=== PATIENT | female | born 1995 | race Caucasian/White ===

== ENCOUNTER → 2017-07-29 | Outpatient (CLI) | payer BC ==
[2017-07-29 18:03] LABS: CH 31.5; CHCM 36.1; HCT 39.3 % (34.0-46.0); HDW 2.61; HGB 13.5 gm/dL (11.4-16.0); MCHC 34.2 g/dL (31.0-37.0); MCV 87.7 fL (80.0-100.0); Mean Platelet Volume 7.1; RBC 4.48 m/uL (3.80-5.40); RDW 12.9 % (11.5-15.5); WBC 10.6 k/uL (3.8-10.6)
[2017-07-29 18:15] LABS: Glucose 64 mg/dL (74-99); Non-African American GFR(MDRD) >60 (>60 ml/min/1.73 sqM)
[2017-07-29 18:49] LABS: Hepatitis B Surface Ag Index 0.05
[2017-07-30 01:26] LABS: Treponemal Ab Non-Reactive (Non-Reactive)
[2017-07-31 02:02] LABS: Toxoplasma Antibody (IgG) <3.0 IU/mL (<7.2)
== END | disposition home or self-care (01) ==
LOC: LABWHC1 17:01
PROVIDERS: ATTEND Obstetrics & Gynecology
DX: Z34.81 Encounter for supervision of other normal pregnancy, first trimester (principal); Z3A.00 Weeks of gestation of pregnancy not specified
CPT/HCPCS: 36415; 82565; 82947; 85027; 86762; 86777; 86778; 86780; 86850; 86900; 86901; 87340; 87390

== ENCOUNTER 2018-02-13 01:21 | Outpatient (CLI) | payer BC ==
[2018-02-13 02:54] VITALS: BP 128/75; PULSE 97; RESP 18; TEMP 96.6
--- NOTE | 2018-02-13 07:37 | P.MSEPDOC ---
Presenting Problems - Arrival Data Date of Arrival on Unit: 02/13/18 Time of Arrival on Unit: 01:19 Mode of Transport: Wheelchair - Complaint OB-Reason for Admission/Chief Complaint: Possible Onset of Labor Comment: pt presents with c/o contractions every 10-15mins since 2199. Medical History - Information : 1 Para: 0 Term: 0 : 0 Abortions: Spontaneous or Elective: 0 Number of Living Children: 0 - Gestational Age Gestational Age by CHARLIE (wks/days): 38 Weeks and 6 Days Review of Systems - Review of Systems Constitutional: No problems Breast: No problems ENT: No problems Cardiovascular: No problems Respiratory: No problems Gastrointestinal: No problems Genitourinary: No problems Musculoskeletal: No problems Neurological: No problems Skin: No problems Vital Signs - Temperature Temperature: 96.6 F Temperature Source: Temporal Artery Scan - Pulse Right Pulse Rate: 97 Pulse Assessment Method: Pulse Oximetry - Respirations Respiratory Rate: 18 Oxygen Delivery Method: Room Air O2 Sat by Pulse Oximetry: 98 - Blood Pressure Right Arm Blood Pressure: 128/75 Blood Pressure Mean: 92 Blood Pressure Source: Automatic Cuff Medical Screen Scoring (Pre) - Cervical Exam Dilation: 0 cm = 0 Effacement: Exam Deferred Membranes: Intact - Uterine Contractions Frequency: N/A Duration: N/A Intensity: N/A - Maternal Vital Signs Maternal Temperature: N/A Maternal Blood Pressure: N/A Signs of Preeclampsia: N/A Maternal Respirations: N/A - Pain Assessment Pain Location and Character: Abdomen Pain Scale Used: Numeric (1 - 10) Pain Intensity: 8 Pain Management Goal: 0 Pain Description: *Acute, Sharp Pain Frequency: Intermittent Pain Duration Units: Minutes Pain Behavior: Vocalization Pain Aggravating Factors: Position Non-Pharmacological Interventions: Darkened Room, Environmental Control, Position/Reposition, Relaxation Technique - Maternal Trauma Maternal Trauma: N/A - Assessment Baseline FHR: 135 Heart Rate - NICHD Category: Category I (Normal) = 0 NST: Reactive Position: N/A Station: N/A - Total Score Total Score (Pre): 0 - Level of Risk Level of Risk: Low (0-5) Physician Notification (Pre) - Physician Notified Physician Notified Date: 02/13/18 Physician Notified Time: 02:08 Physician/Practitioner Notifed:: Dr. Al Spoke With: Dr. Al New Order Received: Yes (Recheck pt at 1hour brandon.) - Notification Comment Comment: If pt is still closed and FHT remain reactive, pt is cleared for discharge home with follow up instructions. Medical Screen Scoring (Post) - Cervical Exam Dilation: 0 cm = 0 Effacement: Exam Deferred Membranes: Intact - Uterine Contractions Frequency: N/A Duration: N/A Intensity: N/A - Maternal Vital Signs Maternal Temperature: N/A Maternal Blood Pressure: N/A Signs of Preeclampsia: N/A Maternal Respirations: N/A - Pain Assessment Pain Location and Character: Abdomen Pain Scale Used: Numeric (1 - 10) Pain Intensity: 3 Pain Management Goal: 0 Pain Description: *Acute, Tightness Pain Frequency: Intermittent Pain Duration Units: Minutes Pain Behavior: Vocalization Pain Aggravating Factors: Position Non-Pharmacological Interventions: Relaxation Technique - Maternal Trauma Maternal Trauma: N/A - Assessment Heart Rate: 130 Heart Rate - NICHD Category: Category I (Normal) = 0 NST: Reactive Position: N/A Station: N/A - Total Score Total Score (Post): 0 - Post Treatment Level of Risk Post Treatment Level of Risk: Low (0-5) Physician Notification (Post) - Physician Notified Physician Notified Date: 02/13/18 Physician Notified Time: 02:08 Physician/Practitioner Notified:: Dr. Al Spoke With: Dr. Al Disposition - Disposition OB Disposition: Discharge to home Discharge Date: 02/13/18 Discharge Time: 02:38 I agree with the RN Medical Screening Exam: Yes Risk & Benefit of care provided described in d/c instruction: Yes Diagnosis: FALSE LABOR AT OR AFTER 37 COMPLETED WEEKS OF GESTATION
== END 2018-02-13 02:38 | disposition home or self-care (01) ==
LOC: FBPOP 01:21
PROVIDERS: ATTEND Obstetrics & Gynecology
DX: O47.1 False labor at or after 37 completed weeks of gestation (principal); Z3A.38 38 weeks gestation of pregnancy
CPT/HCPCS: 59025; 99213

== ENCOUNTER 2018-02-17 15:02 | Inpatient (IN) | payer BC ==
[2018-02-17] MEDS ORDERED: ZOLPIDEM 5 MG TAB PO PRN (16:35)
[2018-02-17] MEDS ORDERED: DINOPROSTONE 10 MG INSERT.ER VAGINAL ONE (16:35)
[2018-02-17 16:43] VITALS: BMI 36.3
[2018-02-17] MEDS: BUTORPHANOL 1 MG/ML 1 ML VIAL IV PRN (21:48)
[2018-02-17 22:10] LABS: Basophils % (A) 0 %; Eosinophils # (A) 0.1 k/uL (0-0.7); Eosinophils % (A) 1 %; HCT 34.4 % (34.0-46.0); HGB 11.5 gm/dL (11.4-16.0); Lymphocytes # (A) 1.7 k/uL (1.0-4.8); Lymphocytes % (A) 14 %; MCH 28.8 pg (25.0-35.0); MCHC 33.6 g/dL (31.0-37.0); MCV 85.8 fL (80.0-100.0); Mean Platelet Volume 7.6; Monocytes # (A) 0.5 k/uL (0-1.0); Monocytes % (A) 4 %; Neutrophils # (A) 9.8 k/uL (1.3-7.7); Neutrophils % (A) 81 %; Platelet Count 358 k/uL (150-450); RBC 4.01 m/uL (3.80-5.40); RDW 13.8 % (11.5-15.5); WBC 12.2 k/uL (3.8-10.6)
[2018-02-17] MEDS: LACTATED RINGERS 1,000 ML IV SCH (23:19)
[2018-02-17] MEDS ORDERED: CARBOPROST TROMETHAMINE 250 MCG/ML 1 ML AMP IM PRN (23:20)
[2018-02-17] MEDS ORDERED: METHYLERGONOVINE 0.2 MG/ML 1 ML AMP IM PRN (23:20)
[2018-02-17] MEDS ORDERED: OXYTOCIN 10 UNIT/ML 1 ML VIAL IM PRN (23:20)
[2018-02-17] MEDS ORDERED: TERBUTALINE 1 MG/ML VIAL SQ PRN (23:20)
[2018-02-17] MEDS ORDERED: LIDOCAINE 1% (PF) 10 MG/ML (30 ML SDV) SQ PRN (23:20)
[2018-02-17] MEDS ORDERED: AMPICILLIN 2,000 MG in SODIUM CHLORIDE 0.9% 100 ML IVPB STA (23:20)
[2018-02-17] MEDS ORDERED: OXYTOCIN 20 UNITS/1000 ML NS 1,000 ML IV SCH (23:30)
[2018-02-18] MEDS: BUTORPHANOL 1 MG/ML 1 ML VIAL IV PRN ×3 (00:59→05:01)
[2018-02-18] MEDS: AMPICILLIN 1,000 MG in SODIUM CHLORIDE 0.9% 50 ML IVPB SCH ×3 (04:07→12:26)
[2018-02-18] MEDS: LACTATED RINGERS 1,000 ML IV SCH ×2 (04:54→08:11)
[2018-02-18] MEDS ORDERED: BUPIVACAINE (PF) 0.25% 30 ML VIAL ONE (07:32)
[2018-02-18] MEDS ORDERED: SODIUM CHLORIDE 0.9% 100 ML BAG ONE (07:32)
[2018-02-18] MEDS ORDERED: fentaNYL (PF) 50 MCG/ML 5 ML AMP ONE (07:32)
[2018-02-18] MEDS ORDERED: ePHEDrine SULFATE/0.9% NACL/PF 50 MG/5 ML SYRINGE IV ONE (07:32)
[2018-02-18] MEDS ORDERED: BUPIVACAINE (PF) 0.25% 25 ML, fentaNYL (PF) 200 MCG in SODIUM CHLORIDE 0.9% 71 ML EPIDURAL ONE (07:52)
--- NOTE | 2018-02-18 13:12 | P.HPOB ---
History of Present Illness H&P Date: 02/17/18 Chief Complaint: Induction of labor 22 year old presents at 39 weeks 4 days for induction of labor. She has been increasingly uncomfortable, she has some headaches and increased swelling. Cervix is closed/50/-2. She is not bridget. heart tones 130-135 with moderate variability and reactive. Review of Systems All systems: negative Constitutional: Denies chills, Denies fever Eyes: denies blurred vision, denies pain Ears, nose, mouth and throat: Denies headache, Denies sore throat Cardiovascular: Denies chest pain, Denies shortness of breath Respiratory: Denies cough Gastrointestinal: Denies abdominal pain, Denies diarrhea, Denies nausea, Denies vomiting Genitourinary: Denies dysuria, Denies hematuria Musculoskeletal: Denies myalgias Integumentary: Denies pruritus, Denies rash Neurological: Denies numbness, Denies weakness Psychiatric: Denies anxiety, Denies depression Endocrine: Denies fatigue, Denies weight change Past Medical History Past Medical History: No Reported History Additional Past Medical History / Comment(s): OB history: first was a spontaneous . This is her second and she has had care with me since 10 weeks. O+, abs neg,Rub Imm, RPR NR, HEp Bneg, HIV NR. History of Any Multi-Drug Resistant Organisms: None Reported Past Surgical History: Orthopedic Surgery Additional Past Surgical History / Comment(s): Knee surgery-2012, wisdom teeth- 2009 Past Anesthesia/Blood Transfusion Reactions: No Reported Reaction Past Psychological History: No Psychological Hx Reported Smoking Status: Former smoker Past Drug Use History: None Reported - Past Family History Mother Family Medical History: Thyroid Disorder Medications and Allergies Home Medications Medication Instructions Recorded Confirmed Type No Known Home Medications [No 02/13/18 02/17/18 History Known Home Medications] Allergies Allergy/AdvReac Type Severity Reaction Status Date / Time No Known Allergies Allergy Verified 02/17/18 16:34 Exam Osteopathic Statement: *. No significant issues noted on an osteopathic structural exam other than those noted in the History and Physical/Consult. - Vital Signs Vital signs: Vital Signs Temp Pulse Resp BP Pulse Ox 02/17/18 16:36 98.1 F 113 H 16 139/91 98 Intake and Output 02/17/18 02/18/18 02/18/18 22:59 06:59 14:59 Other: # Voids 1 3 Weight 90.265 kg HEart: RRR Lungs: CTAB ABdomen: soft, nontender Extremeties: neg kj's Results Result Diagrams: 02/17/18 22:00 Abnormal Lab Results - Last 24 Hours (Table) 02/17/18 Range/Units 22:00 WBC 12.2 H (3.8-10.6) k/uL Neutrophils # 9.8 H (1.3-7.7) k/uL Assessment and Plan (1) Normal labor Current Visit: Yes Status: Acute Code(s): O80 - ENCOUNTER FOR FULL-TERM UNCOMPLICATED DELIVERY; Z37.9 - OUTCOME OF DELIVERY, UNSPECIFIED SNOMED Code(s ): 59870920 Plan: 1. induction of labor with cervidil and then amniotomy and pitocin 2. anticipate normal vaginal delivery
[2018-02-18] MEDS ORDERED: BENZOCAINE/MENTHOL SPRAY 1 GM/SPRAY AEROSOL TOPICAL PRN (13:56)
[2018-02-18] MEDS ORDERED: ZOLPIDEM 5 MG TAB PO PRN (13:56)
[2018-02-18] MEDS ORDERED: diphenhydrAMINE 50 MG CAP PO PRN (13:56)
[2018-02-18] MEDS ORDERED: SIMETHICONE 80 MG CHEWABLE PO PRN (13:56)
[2018-02-18] MEDS ORDERED: diphenhydrAMINE 25 MG CAP PO PRN (13:56)
[2018-02-18] MEDS ORDERED: HYDROCORTISONE 2.5% RECTAL CREAM 30 GM TUBE RECTAL PRN (13:56)
[2018-02-18] MEDS ORDERED: LANOLIN CREAM 5 GM TUBE TOPICAL PRN (13:56)
[2018-02-18] MEDS ORDERED: diphenhydrAMINE 50 MG/ML 1 ML VIAL IVP PRN ×2 (13:56)
[2018-02-18] MEDS ORDERED: WITCH HAZEL 1 EACH MED..PAD TOPICAL PRN (13:56)
[2018-02-18] MEDS ORDERED: HYDROcodone/APAP 5-325MG 1 EACH TAB PO PRN ×2 (14:02→14:03)
[2018-02-18] MEDS: IBUPROFEN 600 MG TAB PO PRN ×2 (14:10→20:15)
[2018-02-18] MEDS: ACETAMINOPHEN TAB 325 MG TAB PO PRN ×2 (17:22→22:43)
[2018-02-18] MEDS: SENNOSIDES-DOCUSATE SODIUM 1 EACH TAB PO SCH (20:16)
[2018-02-19] MEDS: IBUPROFEN 600 MG TAB PO PRN (04:24)
--- NOTE | 2018-02-19 07:14 | P.PROBDLV ---
Vaginal Delivery Note - . Vaginal Delivery Note: 22-year-old presented at 39 weeks and 4 days for induction of labor. Her cervix was closed, 50% effaced, -2 station. She was bridget irregularly. heart tones 130-135 with moderate variability and reactive. Cervidil was placed but she will went to labor and her water broke at 11:30 PM and Cervidil was removed. She was about 2 cm dilated at that time. Pitocin was started at around 5:15 in the morning when the contractions spaced out. She did get an epidural soon after this. Her cervix was completely dilated at 12:54 PM. She pushed, delivered a viable male over intact perineum under epidural anesthesia at 1339. Head delivered OA, anterior shoulder delivered with gentle downward traction followed by posterior shoulder and rest of body. Nose mouth bulb suctioned, cord clamped and cut, infant placed mother's abdomen. Apgars 9 , 9, weight 7 lbs. 7 oz. Placenta delivered spontaneously, intact with three- vessel cord at 1341. Vagina, cervix, perineum were inspected. Second-degree midline laceration was repaired with 2-0 and 3-0 Vicryl. Estimated blood loss 200 mL. Mother and baby in stable condition.
--- NOTE | 2018-02-19 08:18 | P.DS ---
Providers Date of admission: 02/17/18 16:15 Expected date of discharge: 02/19/18 Attending physician: Sabrina Gallardo Primary care physician: Stated None - Discharge Diagnosis(es) (1) Normal labor Current Visit: Yes Status: Acute Hospital Course: Patient presented for induction of labor. She underwent a normal vaginal delivery. Her course was uncomplicated. She'll be discharged home day #1 in stable condition to follow-up with me in 6 weeks. Plan - Discharge Summary New Discharge Prescriptions: No Action No Known Home Medications [No Known Home Medications] Discharge Medication List No Known Home Medications [No Known Home Medications] 02/13/18 [History] Follow up Appointment(s)/Referral(s): Sabrina Gallardo DO [Doctor of Osteopathic Medicine] - 6 Weeks Discharge Disposition: HOME SELF-CARE
[2018-02-19] MEDS: ACETAMINOPHEN TAB 325 MG TAB PO PRN ×3 (09:32→22:27)
[2018-02-19] MEDS: SENNOSIDES-DOCUSATE SODIUM 1 EACH TAB PO SCH ×2 (09:32→19:44)
[2018-02-20 00:13] VITALS: TEMP 98
[2018-02-20] MEDS: ACETAMINOPHEN TAB 325 MG TAB PO PRN ×2 (01:58→09:05)
[2018-02-20 10:08] VITALS: BP 127/69; PULSE 71; RESP 16
== END 2018-02-20 11:23 | disposition home or self-care (01) | DRG 775 ==
LOC: 4FBP 16:15
PROVIDERS: ADMIT Obstetrics & Gynecology; ATTEND Obstetrics & Gynecology
PROC: 3E0P7VZ Introduction of Hormone into Female Reproductive, Via Natural or Artificial Opening (ICD-10-PCS; 2018-02-17)
PROC: 3E033VJ Introduction of Other Hormone into Peripheral Vein, Percutaneous Approach (ICD-10-PCS; 2018-02-17)
PROC: 10E0XZZ Delivery of Products of Conception, External Approach (ICD-10-PCS; principal; 2018-02-18)
PROC: 0KQM0ZZ Repair Perineum Muscle, Open Approach (ICD-10-PCS; 2018-02-18)
PROC: 00HU33Z Insertion of Infusion Device into Spinal Canal, Percutaneous Approach (ICD-10-PCS; 2018-02-18)
PROC: 3E0R3NZ Introduction of Analgesics, Hypnotics, Sedatives into Spinal Canal, Percutaneous Approach (ICD-10-PCS; 2018-02-18)
DX: O70.1 Second degree perineal laceration during delivery (principal); Z37.0 Single live birth; Z3A.39 39 weeks gestation of pregnancy; Z87.891 Personal history of nicotine dependence
CPT/HCPCS: 85025; 88307

== ENCOUNTER → 2019-01-24 | Outpatient (CLI) | payer BC ==
--- NOTE | 2019-01-24 21:29 | MR ---
EXAMINATION TYPE: MR knee RT wo con DATE OF EXAM: 01/24/2019 COMPARISON: Plain films 01/18/2019 [facility] HISTORY: Rt knee pain, fell on ice 2 mos ago TECHNIQUE: Multiplanar, multisequence imaging of the right knee is performed without IV contrast. FINDINGS: MEDIAL MENISCUS: There is oblique signal through the posterior horn medial meniscus compatible with i nternal derangement. No communication with an articular surface is evident. LATERAL MENISCUS: Anterior and posterior horns are intact without tear. CRUCIATE LIGAMENTS: The anterior and posterior cruciate ligaments are intact and unremarkable. COLLATERAL LIGAMENTS: The medial collateral ligament and lateral collateral ligament complex are inta ct and unremarkable. EXTENSOR MECHANISM: Visualized quadriceps and patellar tendons are intact. EFFUSION: No significant suprapatellar joint effusion. POPLITEAL CYST: There is a popliteal cyst measuring approximately 4.2 x 0.8 cm posterior to the femu r. TRICOMPARTMENT SPACES: Joint spaces appear preserved. CARTILAGE: Cartilage appears intact. BONE MARROW SIGNAL: Some marrow conversion is evident. Suspicious signal abnormality is not identifie d OTHER: No additional significant abnormality is appreciated. IMPRESSION: 1. Internal derangement posterior horn medial meniscus. 2. Small popliteal cyst
== END | disposition home or self-care (01) ==
LOC: RADMRIMAIN 16:55
PROVIDERS: ATTEND Orthopaedic Surgery
DX: M23.321 Other meniscus derangements, posterior horn of medial meniscus, right knee (principal); M71.21 Synovial cyst of popliteal space [Baker], right knee

== ENCOUNTER → 2019-03-30 | Outpatient (CLI) | payer BC ==
[2019-03-30 10:42] LABS: Basophils % (A) 0 %; Eosinophils # (A) 0.2 k/uL (0-0.7); Eosinophils % (A) 2 %; HCT 40.3 % (34.0-46.0); HGB 13.5 gm/dL (11.4-16.0); Lymphocytes # (A) 2.6 k/uL (1.0-4.8); Lymphocytes % (A) 26 %; MCH 29.8 pg (25.0-35.0); MCHC 33.5 g/dL (31.0-37.0); MCV 89.1 fL (80.0-100.0); Monocytes # (A) 0.4 k/uL (0-1.0); Monocytes % (A) 4 %; Neutrophils # (A) 6.8 k/uL (1.3-7.7); Neutrophils % (A) 67 %; Platelet Count 329 k/uL (150-450); RBC 4.52 m/uL (3.80-5.40); RDW 13.5 % (11.5-15.5); WBC 10.2 k/uL (3.8-10.6)
[2019-03-30 11:50] LABS: Potassium 4.5 mmol/L (3.5-5.1)
== END ==
LOC: LABPAT 10:12
PROVIDERS: ATTEND Orthopaedic Surgery
DX: Z01.812 Encounter for preprocedural laboratory examination (principal); M23.91 Unspecified internal derangement of right knee
CPT/HCPCS: 80051; 85025

== ENCOUNTER 2019-04-06 10:46 | Day surgery (SDC) | payer BC ==
[2019-04-05 08:52] VITALS: BMI 30.2
--- NOTE | 2019-04-05 14:04 | HP ---
HISTORY AND PHYSICAL DATE OF SURGERY: 04/06/2019 Anju Martinez is a 23-year-old patient seen with progressive right knee pain. We discussed options. She elected to proceed with arthroscopy. Consent was obtained. PAST MEDICAL HISTORY: Noncontributory. PAST SURGICAL HISTORY: Noncontributory. DAILY MEDICATIONS: None. ALLERGIES: None reported. SOCIAL HISTORY: She smokes occasional cigarettes. PHYSICAL EVALUATION OF THE RIGHT KNEE: Range of motion 0 to 130 degrees. There is a mild effusion present. She has tenderness along the medial joint line with a positive medial Joellen's. Her ligaments are stable. Hip rotation is without pain. Distal neurovascular exam is intact. RADIOGRAPHS OF THE RIGHT KNEE: Revealed no osseous abnormality. MRI right knee revealed abnormal signal through the medial meniscus. IMPRESSION: Internal derangement, right knee with medial meniscal tear. PLAN: Right knee arthroscopy with partial meniscectomy and debridement. MMODL / IJN: [id number] /
[~2019-04-06 10:46] MED LIST: BUPIVACAIN-EPI 0.5%-1:200,000 30 ML VIAL INTRAARTIC ONE; DEXAMETHASONE SOD PHOSPHATE 10 MG/ML 1 ML VIAL IV ONE; HYDROmorphone 0.5 MG/0.5 ML SYRINGE IVP PRN; LACTATED RINGERS 1,000 ML IV SCH; LIDOCAINE 1% 20 ML VIAL (10MG/ML) FOR IV START INTRADERMA PRN; MIDAZOLAM 2 MG/2 ML VIAL IV PRN; ONDANSETRON 4 MG/2 ML VIAL IVP ONE; SCOPOLAMINE 1.5MG/72HR PATCH TRANSDERM ONE
[2019-04-06] MEDS ORDERED: KETOROLAC 30 MG/ML 1 ML VIAL ONE (12:17)
[2019-04-06] MEDS ORDERED: PROPOFOL 10 MG/ML 20 ML VIAL IV ONE (12:17)
[2019-04-06] MEDS ORDERED: LIDOCAINE 1% INJ 10MG/ML (20 ML MDV) ONE (12:17)
[2019-04-06] MEDS ORDERED: fentaNYL (PF) 50 MCG/ML 2 ML AMP ONE (12:17)
[2019-04-06] MEDS ORDERED: MIDAZOLAM 2 MG/2 ML VIAL ONE (12:17)
[2019-04-06] MEDS ORDERED: LACTATED RINGERS 1,000 ML IV ONE (12:48)
--- NOTE | 2019-04-06 13:10 | P.OP ---
Date of Procedure: 04/06/19 Preoperative Diagnosis: Internal derangement right knee Postoperative Diagnosis: 1. Tear medial meniscus right knee 2. Reactive synovitis medial, lateral and suprapatellar compartments right knee Procedure(s) Performed: 1. Arthroscopic partial medial meniscectomy right knee 2. Arthroscopic partial synovectomy medial, lateral and suprapatellar compartments right knee Anesthesia: BRIANA, local Surgeon: Jason Thornton Estimated Blood Loss (ml): 5 Pathology: none sent Condition: stable Disposition: PACU Indications for Procedure: 23-year-old patient seen with progressive right knee pain. After treatment options were discussed, she elected to proceed with arthroscopy. Operative Findings: See description of procedure Description of Procedure: Patient was taken to the operative suite. Patient underwent a general an esthetic by the department of anesthesia. Patient was given preoperative antibiotics. The right lower extremity was placed in a well-padded arthroscopic leg yuen. The right leg was prepped and draped in the normal sterile orthopedic fashion. A lateral parapatellar and suprapatellar incision was made. Trochars were inserted. Arthroscopy was initiated. Suprapatellar pouch revealed diffuse thick reactive synovitis. The patellofemoral joint appeared to articulate congruently. There was no chondromalacia. The scope was guided into the medial gutter. No loose bodies or plica were identified. The scope was then guided into the medial compartment. A medial parapatellar incision was made. Trocar inserted followed by probe. It was a small radial tear posterior horn medial meniscus. There was no chondromalacia. There was reactive synovitis anteriorly. I performed a partial medial meniscectomy. I performed a partial synovectomy. The residual meniscus was stable. There was good decompression of synovitis. Scope and probe were then guided into the intercondylar notch. Cruciates were identified, probed and found to be table. The scope and probe were then guided into lateral compartment. Lateral meniscus was unremarkable. Lateral condyle and tibial plateau were unremarkable. There was some reactive synovitis anteriorly. I performed a partial synovectomy. There was good decompression of synovitis lateral compartment. The scope was in guided back into the suprapatellar compartment. Using a motorized shaver into the super patellar compartment. I performed a partial synovectomy. \The shaver was removed. Instruments were now removed from the joint. The joint was infiltrated with .25% Marcaine. Steri-Strips were applied to the portal sites. Sterile dressings were applied. The patient was placed into a SVETLANA hose. No tourniquet was utilized. The patient was awakened, transferred to a bed and taken to recovery stable satisfactory condition.
[2019-04-06 13:19] VITALS: TEMP 96.8
[2019-04-06 14:13] VITALS: PULSE 71; RESP 18
[2019-04-06] MEDS ORDERED: LIDOCAINE 1% 20 ML VIAL (10MG/ML) FOR IV START INTRADERMA ONE (14:50)
[2019-04-06] MEDS ORDERED: HYDROcodone/APAP 5-325MG 1 EACH TAB PO ONE (14:50)
[2019-04-06 15:00] VITALS: BP 126/60
== END 2019-04-06 15:13 | disposition home or self-care (01) ==
LOC: OR 10:46
PROVIDERS: ATTEND Orthopaedic Surgery
DX: S83.241A Other tear of medial meniscus, current injury, right knee, initial encounter (principal); X58.XXXA Exposure to other specified factors, initial encounter; M65.861 Other synovitis and tenosynovitis, right lower leg; Z87.891 Personal history of nicotine dependence
CPT/HCPCS: 29881; 29876; 81025; J2250; J1100; J2405; J0690; J2001; J3010; J1885; J2704; J1170

== ENCOUNTER 2019-08-11 11:45 | Observation (INO) | payer BC ==
[~2019-08-11 11:45] MED LIST changes: -BUPIVACAIN-EPI 0.5%-1:200,000 30 ML VIAL INTRAARTIC ONE; -DEXAMETHASONE SOD PHOSPHATE 10 MG/ML 1 ML VIAL IV ONE; -HYDROmorphone 0.5 MG/0.5 ML SYRINGE IVP PRN; +LACTATED RINGERS 1,000 ML IV ONE; -LACTATED RINGERS 1,000 ML IV SCH; -LIDOCAINE 1% 20 ML VIAL (10MG/ML) FOR IV START INTRADERMA PRN; -MIDAZOLAM 2 MG/2 ML VIAL IV PRN; -ONDANSETRON 4 MG/2 ML VIAL IVP ONE; -SCOPOLAMINE 1.5MG/72HR PATCH TRANSDERM ONE
[2019-08-11] MEDS ORDERED: MORPHINE SULFATE 4 MG/ML SYRINGE IV STA (12:43)
[2019-08-11] MEDS ORDERED: ONDANSETRON 4 MG/2 ML VIAL IVP STA (12:43)
[2019-08-11] MEDS ORDERED: SODIUM CHLORIDE 0.9% 2,000 ML IV STA (12:43)
[2019-08-11 13:12] LABS: Basophils # (A) 0.1 k/uL (0-0.2); Basophils % (A) 1 %; Eosinophils # (A) 0.1 k/uL (0-0.7); Eosinophils % (A) 1 %; HCT 42.5 % (34.0-46.0); HGB 14.3 gm/dL (11.4-16.0); Lymphocytes % (A) 18 %; MCHC 33.7 g/dL (31.0-37.0); Mean Platelet Volume 6.8; Monocytes # (A) 0.4 k/uL (0-1.0); Monocytes % (A) 4 %; Neutrophils # (A) 8.3 k/uL (1.3-7.7); Neutrophils % (A) 76 %; Platelet Count 364 k/uL (150-450); RBC 4.94 m/uL (3.80-5.40); RDW 13.2 % (11.5-15.5); WBC 10.9 k/uL (3.8-10.6)
[2019-08-11 13:22] LABS: ALT 18 U/L (9-52); AST 24 U/L (14-36); African American GFR (CKD) >90 (>60 ml/min/1.73 sqM); Albumin 4.8 g/dL (3.5-5.0); Alkaline Phosphatase 56 U/L (38-126); Anion Gap 12 mmol/L; Blood Urea Nitrogen 15 mg/dL (7-17); Calcium 9.8 mg/dL (8.4-10.2); Carbon Dioxide 22 mmol/L (22-30); Chloride 105 mmol/L (98-107); Glucose 91 mg/dL (74-99); Sodium 139 mmol/L (137-145); Total Bilirubin 0.8 mg/dL (0.2-1.3); Total Protein 8.3 g/dL (6.3-8.2)
[2019-08-11 13:27] LABS: Potassium 4.5 mmol/L (3.5-5.1)
[2019-08-11] MEDS ORDERED: HYDROmorphone 1 MG/ML 1 ML SYRINGE IVP STA (13:48)
--- NOTE | 2019-08-11 14:21 | ED ---
Abdominal Pain HPI - General Chief Complaint: Abdominal Pain Stated Complaint: rt sided flank pain Time Seen by Provider: 08/11/19 12:10 Source: patient Mode of arrival: ambulatory Limitations: no limitations - History of Present Illness Initial Comments: The patient is a 23-year-old female who is who presents to the emergency department with reported right-sided flank pain. She states that the symptoms awoke her this morning at 7 AM. It is described as a sharp shooting sensation with radiation to the anterior abdomen. She denies a history of similar pain in the past. It has been so severe that it caused her to have nausea and vomiting. She did not take any medications at home for her symptoms. She did attempt to go to the chiropractor today to alleviate her symptoms however this did not help and therefore presented to the emergency room for further evaluation. She denies any dysuria, hematuria or difficulty voiding. She denies any abnormal vaginal bleeding or discharge. States that her menstrual cycle should be starting up in 3 days. She took a test yesterday and it was negative. She denies the possibility of sexually transmitted infections. She denies diarrhea, constipation, melanotic stools or hematochezia. No abdominal trauma. No history of kidney stones. The pain is not reproducible upon movement. She denies any chest pain or shortness of breath. No fevers or chills. There are no other alleviating, precipitating or modifying factors - Related Data Previous Rx's Medication Instructions Recorded HYDROcodone/APAP 5-325MG [[place] 1 each PO Q4HR PRN #42 tab 08/12/19 5-325] Allergies Allergy/AdvReac Type Severity Reaction Status Date / Time adhesive tape AdvReac Rash/Hives Verified 08/11/19 23:12 Review of Systems ROS Statement: Those systems with pertinent positive or pertinent negative responses have been documented in the HPI. ROS Other: All systems not noted in ROS Statement are negative. Past Medical History Past Medical History: No Reported History Additional Past Medical History / Comment(s): OB history: first was a spontaneous . This is her second and she has had care with me since 10 weeks. O+, abs neg,Rub Imm, RPR NR, HEp Bneg, HIV NR. History of Any Multi-Drug Resistant Organisms: None Reported Past Surgical History: Orthopedic Surgery Additional Past Surgical History / Comment(s): B Knee surgery, wisdom teeth extracted. Past Anesthesia/Blood Transfusion Reactions: No Reported Reaction Past Psychological History: No Psychological Hx Reported Smoking Status: Current every day smoker Past Alcohol Use History: Rare Past Drug Use History: None Reported - Past Family History Mother Family Medical History: Thyroid Disorder Father Family Medical History: Osteoarthritis (OA) General Exam Limitations: no limitations General appearance: alert, in no apparent distress Head exam: Present: atraumatic, normocephalic, normal inspection Eye exam: Present: normal appearance, PERRL, EOMI. Absent: scleral icterus, co njunctival injection, periorbital swelling ENT exam: Present: normal exam, mucous membranes moist Neck exam: Present: normal inspection. Absent: tenderness, meningismus, lymphadenopathy Respiratory exam: Present: normal lung sounds bilaterally. Absent: respiratory distress, wheezes, rales, rhonchi, stridor Cardiovascular Exam: Present: regular rate, normal rhythm, normal heart sounds. Absent: systolic murmur, diastolic murmur, rubs, gallop, clicks GI/Abdominal exam: Present: soft, tenderness (right lower quadrant, right flank. No peritoneal signs), normal bowel sounds. Absent: distended, guarding, rebound, rigid Extremities exam: Present: normal inspection, full ROM, normal capillary refill. Absent: tenderness, pedal edema, joint swelling, calf tenderness Back exam: Present: normal inspection Neurological exam: Present: alert, oriented X3, CN II-XII intact Psychiatric exam: Present: normal affect, normal mood Skin exam: Present: warm, dry, intact, normal color. Absent: rash Course Vital Signs 08/11/19 08/11/19 08/11/19 12:04 13:30 14:30 Temperature 98.1 F Pulse Rate 65 69 72 Respiratory 18 17 18 Rate Blood Pressure 132/88 111/93 97/58 O2 Sat by Pulse 100 100 99 Oximetry 08/11/19 18:46 Temperature Pulse Rate 70 Respiratory 18 Rate Blood Pressure 116/69 O2 Sat by Pulse 98 Oximetry Medical Decision Making - Medical Decision Making Upon arrival the patient was placed into room 8. A thorough history and physical exam was performed. Peripheral IV is established. The patient is requesting pain medication. We do not have a test on the patient and I did discuss the risks of providing her with medication before have any results. The patient consented verbally to pain medication stating that she was not as she did have a negative test yesterday. I did order the patient 4 mgs of morphine and 4 mg of Zofran. I did recommend laboratory studies as wel l as a urinalysis. The patient refused to provide a urine. As I am unable to obtain an urine HCG, I do order a serum HCG. I also ordered a CT of the patient's abdomen and pelvis. Laboratory studies do return. White blood cell count is 10.9. HCG qualitative is detected. I therefore ordered a Beta Quant which returns and is 16.7. Patient does eventually provide a urine which is positive for 1+ ketones. I then canceled the patient's CT of her abdomen and pelvis ordered a ultrasound. The patient is requesting more pain medications at this time. I did inform her of the risks of providing opiate pain medications in and the patient verbally consented to additional medications. I did provide her with 1 mg of Dilaudid and Reglan 10 mg for nausea. The patient does have difficulty tolerating the US. Multiple attempts need to be made. I discussed the importance of obtaining the ultrasound on the patient as I am concerned for ectopic , ovarian torsion, and renal etiology of the pain. The patient understands and agrees to another attempt at ultrasound. The sterilization tech also ultrasounds the patient's right kidney. Obstetric ultrasound demonstrates no intrauterine seen. Enlarged right ovary with solid and cystic areas. Right ovary is a 8.5 x 7.5 x 5.1 cm. Limited color-flow and pulse by Doppler. Left ovary measures 4.2 x 2.9 x 2.9. There is a small amount of fluid in the cul-de-sac. There is no signs of hydronephrosis. I did call the sterilization tech. power plant technician did report that she had positive arterial flow but cannot see venous flow. She said this is secondary to the patient moving around during the procedure. Because of the abnormal ultrasound I did call and discuss the case with Dr. George as the patient previously delivered with Dr. Gallardo. Dr. George does present to the emergency department and evaluates the patient. Because of her persistent pain she is provided with an additional 1 mg of Dilaudid in incremental doses. Dr. George did recommend taking the patient to the OR because of her persistent pain and concern for torsion. The patient did consent to this and she was taken upstairs in stable condition. - Lab Data Result diagrams: 08/12/19 07:56 08/11/19 12:51 Lab Results 08/11/19 08/11/19 08/11/19 Range/Units 12:51 12:51 12:51 WBC 10.9 H (3.8-10.6) k/uL RBC 4.94 (3.80-5.40) m/uL Hgb 14.3 (11.4-16.0) gm/dL Hct 42.5 (34.0-46.0) % MCV 86.0 (80.0-100.0) fL MCH 29.0 (25.0-35.0) pg MCHC 33.7 (31.0-37.0) g/dL RDW 13.2 (11.5-15.5) % Plt Count 364 (150-450) k/uL Neutrophils % 76 % Lymphocytes % 18 % Monocytes % 4 % Eosinophils % 1 % Basophils % 1 % Neutrophils # 8.3 H (1.3-7.7) k/uL Lymphocytes # 2.0 (1.0-4.8) k/uL Monocytes # 0.4 (0-1.0) k/uL Eosinophils # 0.1 (0-0.7) k/uL Basophils # 0.1 (0-0.2) k/uL Sodium 139 (137-145) mmol/L Potassium 4.5 (3.5-5.1) mmol/L Chloride 105 (98-107) mmol/L Carbon Dioxide 22 (22-30) mmol/L Anion Gap 12 mmol/L BUN 15 (7-17) mg/dL Creatinine 0.62 (0.52-1.04) mg/dL Est GFR (CKD-EPI)AfAm >90 (>60 ml/min/1.73 sqM) Est GFR (CKD-EPI)NonAf >90 (>60 ml/min/1.73 sqM) Glucose 91 (74-99) mg/dL Plasma Lactic Acid [place] 1.1 (0.7-2.0) mmol/L Calcium 9.8 (8.4-10.2) mg/dL Total Bilirubin 0.8 (0.2-1.3) mg/dL AST 24 (14-36) U/L ALT 18 (9-52) U/L Alkaline Phosphatase 56 (38-126) U/L Total Protein 8.3 H (6.3-8.2) g/dL Albumin 4.8 (3.5-5.0) g/dL Lipase 54 (23-300) U/L HCG, Qual HCG, Quant mIU/mL Blood Type Blood Type Recheck Bld Type Recheck Status Antibody Screen Spec Expiration Date 08/11/19 08/11/19 08/11/19 Range/Units 12:51 12:51 12:51 WBC (3.8-10.6) k/uL RBC (3.80-5.40) m/uL Hgb (11.4-16.0) gm/dL Hct (34.0-46.0) % MCV (80.0-100.0) fL MCH (25.0-35.0) pg MCHC (31.0-37.0) g/dL RDW (11.5-15.5) % Plt Count (150-450) k/uL Neutrophils % % Lymphocytes % % Monocytes % % Eosinophils % % Basophils % % Neutrophils # (1.3-7.7) k/uL Lymphocytes # (1.0-4.8) k/uL Monocytes # (0-1.0) k/uL Eosinophils # (0-0.7) k/uL Basophils # (0-0.2) k/uL Sodium (137-145) mmol/L Potassium (3.5-5.1) mmol/L Chloride (98-107) mmol/L Carbon Dioxide (22-30) mmol/L Anion Gap mmol/L BUN (7-17) mg/dL Creatinine (0.52-1.04) mg/dL Est GFR (CKD-EPI)AfAm (>60 ml/min/1.73 sqM) Est GFR (CKD-EPI)NonAf (>60 ml/min/1.73 sqM) Glucose (74-99) mg/dL Plasma Lactic Acid [place] (0.7-2.0) mmol/L Calcium (8.4-10.2) mg/dL Total Bilirubin (0.2-1.3) mg/dL AST (14-36) U/L ALT (9-52) U/L Alkaline Phosphatase (38-126) U/L Total Protein (6.3-8.2) g/dL Albumin (3.5-5.0) g/dL Lipase (23-300) U/L HCG, Qual Detected HCG, Quant 16.7 mIU/mL Blood Type O Positive Blood Type Recheck O Pos Bld Type Recheck Status No Antibody Screen NEGATIVE Spec Expiration Date 08/14/2019 - 2356 Disposition Clinical Impression: Abdominal pain, Incidental confirmed, Ovarian mass, right Disposition: ADMITTED IP TO THIS [facility] Condition: Stable Is patient prescribed a controlled substance at d/c from ED?: No Decision to Admit Reason: Admit from EC
[2019-08-11 15:51] LABS: Appearance,Urine Clear (Clear); Bilirubin,Urine Negative (Negative); Blood,Urine Negative (Negative); Color,Urine Yellow; Glucose,Urine (UA) Negative (Negative); Ketones,Urine 1+ (Negative); Leukocyte Esterase,Urine Negative (Negative); Nitrite,Urine Negative (Negative); PH, Urine 6.5 (5.0-8.0); Protein,Urine Negative (Negative); Specific Gravity,Urine 1.017 (1.001-1.035); Urobilinogen,Urine <2.0 mg/dL (<2.0)
--- NOTE | 2019-08-11 16:01 | US ---
EXAMINATION TYPE: Transabdominal DATE OF EXAM: 08/11/2019 3:34 PM COMPARISON: NONE CLINICAL HISTORY: positive preg, abd pain. Severe right flank today with nausea and vomiting EXAM PERFORMED: Transvaginal (TV) and Transabdominal (TA) EXAM MEASUREMENTS: GESTATIONAL AGE / DATING Physician Established: Not yet established Dates by LMP: (2 weeks/5 days) EDC: 04/28/2020 Dates by First Scan: No previous. Dates by Current Scan for: no IUP is seen today MATERNAL ANATOMY Uterus: 10.5 x 5.1 x 4.5cm; multiple small Nabothian cysts in cervix Right Ovary: 7.5 x 8.5 x 5.1cm , abnormally enlarged with limited color flow and PW Doppler demonstra leesa upon multiple assessments. Left Ovary: 4.2 x 2.9 x 2.9cm Post CDS / Adnexa: large complex mass as right ovary is noted with multiple complex cysts Presence of free fluid: small amount in cul de sac = 3.5 x2.3 x 0.8cm Presence of corpus luteal cyst: seen in left ovary as thick walled cyst and peripheral ring of color flow = 2.5 x 2.5 x 1.8cm. GESTATION / SURVEY No IUP is seen, but abnormally enlarged right ovary with solid and cystic areas is imaged, thus consi alistair ectopic vs. ovarian mass Date of LMP: 07/23/2019 Beta HcG (if available): 16.5 EC Physician requested additional images of patient's right kidney due to patient's right flank pain: no hydronephrosis or masses seen. IMPRESSION: No evidence for intrauterine at this time. Findings may reflect normal early IUP however ec topic is not excluded given enlarged right ovary with solid and cystic areas. Correlate cli nically with serial beta hCG and ultrasound. 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
[2019-08-11] MEDS ORDERED: HYDROmorphone 0.5 MG/0.5 ML SYRINGE IVP STA ×2 (17:50→18:23)
[2019-08-11] MEDS ORDERED: METOCLOPRAMIDE 5 MG/ML 2 ML VIAL IVP STA (17:50)
[2019-08-11] MEDS ORDERED: SODIUM CHLORIDE 0.9% 1,000 ML IV SCH (18:30)
--- NOTE | 2019-08-11 19:24 | P.HPOB ---
History of Present Illness H&P Date: 08/11/19 Chief Complaint: Severe right-sided abdominal pain This is a 23-year-old female 3 para 1011 with a last menstrual period of 07/23/2019, who presented to emergency room with severe right-sided pain that began at about 7 AM this morning when she was getting out of work. She initially went to the chiropractor to see if that would help her back pain and it did not improve anything. She states the pain is been pretty much constant but there are some positions where it is less intense than others. She called her who came home and she did try to eat at approximately 10:30 AM. She ate some strawberries and yogurt and immediately vomited up. He then took her to the emergency room where she has been evaluated. She has required a significant amount of pain medication in the ER and it still is barely touching her pain. She has been having nausea and vomiting. In the emergency room a pelvic ultrasound was performed that showed a 7.5 x 8.5 x 5.1 abnormal enlarged right ovary with limited color-flow demonstrated due to difficulty with patient positioning. The left ovary did appear essentially normal but did have a corpus luteum cyst measuring 2.5 cm. No intrauterine was visualized. There was a small amount of free fluid in the cul-de-sac measuring 3.5 x 2.3 cm. Her beta hCG did come back at 16.5. Obstetrical history: 011. She has a history of 1 vaginal delivery at term approximately a year and a half ago. She also has a history of 1 miscarriage. Gynecologic history: No history of sexual transmitted diseases. She is not currently taking anything for control and they're not preventing . Social history: She is . 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 Review of Systems Constitutional: Denies chills, Denies fever Ears, nose, mouth and throat: Denies headache, Denies sore throat Cardiovascular: Denies chest pain, Denies shortness of breath Respiratory: Denies cough Gastrointestinal: Reports abdominal pain, Reports nausea, Reports vomiting Genitourinary: Reports pelvic pain, Reports Musculoskeletal: Reports low back pain Neurological: Reports as per HPI Psychiatric: Denies anxiety, Denies depression Past Medical History Past Medical History: No Reported History History of Any Multi-Drug Resistant Organisms: None Reported Past Surgical History: Orthopedic Surgery Additional Past Surgical History / Comment(s): B Knee surgery, wisdom teeth extracted. Past Anesthesia/Blood Transfusion Reactions: No Reported Reaction Past Psychological History: No Psychological Hx Reported Smoking Status: Current every day smoker Past Alcohol Use History: Rare Past Drug Use History: None Reported - Past Family History Mother Family Medical History: Thyroid Disorder Medications and Allergies Home Medications Medication Instructions Recorded Confirmed Type No Known Home Medications 08/11/19 08/11/19 History Allergies Allergy/AdvReac Type Severity Reaction Status Date / Time No Known Allergies Allergy Verified 08/11/19 12:59 Exam Osteopathic Statement: *. No significant issues noted on an osteopathic structural exam other than those noted in the History and Physical/Consult. Vital Signs Temp Pulse Resp BP Pulse Ox 08/11/19 18:46 70 18 116/69 98 08/11/19 14:30 72 18 97/58 99 08/11/19 13:30 69 17 111/93 100 08/11/19 12:04 98.1 F 65 18 132/88 100 Intake and Output 08/11/19 08/11/19 08/11/19 06:59 14:59 22:59 Other: Weight 70.307 kg Gen.: Well-developed well-nourished female in acute distress due to pain. HEENT: Within normal limits Heart: Regular rate and rhythm Lungs: Clear to auscultation bilaterally Abdomen: Severely tender in the right side and on the right flank area. Extremities: Negative Homans Results Result Diagrams: 08/11/19 12:51 08/11/19 12:51 Abnormal Lab Results - Last 24 Hours (Table) 08/11/19 08/11/19 08/11/19 Range/Units 12:51 12:51 Unknown WBC 10.9 H (3.8-10.6) k/uL Neutrophils # 8.3 H (1.3-7.7) k/uL Total Protein 8.3 H (6.3-8.2) g/dL Urine Ketones 1+ H (Negative) Assessment and Plan (1) Acute abdominal pain in right lower quadrant Current Visit: Yes Status: Acute Code(s): R10.31 - RIGHT LOWER QUADRANT PAIN SNOMED Code(s): 533132449 (2) Incidental confirmed Current Visit: Yes Status: Acute Code(s): Z33.1 - STATE, INCIDENTAL SNOMED Code(s): 18155415 (3) Ovarian mass, right Current Visit: Yes Status: Acute Code(s): N83.8 - OTH NONINFLAMMATORY DISORD OF OVARY, FALLOP AND BROAD LIGMT SNOMED Code(s): 322783539 Plan: I discussed with patient and her the high probability of this being a ovarian torsion. I also discussed the and that it is unknown where the is at at this time whether it is in the uterus or ectopic. I have suggested that we proceed with a laparoscopy and possible laparotomy, possible salpingo-oophorectomy if necessary. They do understand that this could impact her fertility in the future. They also understand that this may impact her current . All risks and benefits of the surgery were discussed in detail with the patient and her and all questions were answered. Consent will be signed. OR team is called.
[2019-08-11] MEDS ORDERED: HYDROmorphone 0.5 MG/0.5 ML SYRINGE IVP PRN (19:43)
[2019-08-11] MEDS ORDERED: KETOROLAC 30 MG/ML 1 ML VIAL IVP PRN (19:43)
[2019-08-11] MEDS ORDERED: SUCCINYLCHOLINE CHLORIDE 100 MG/5 ML SYR IV ONE (20:05)
[2019-08-11] MEDS ORDERED: LACTATED RINGERS 1,000 ML IV ONE (20:05)
[2019-08-11] MEDS ORDERED: PROPOFOL 10 MG/ML 20 ML VIAL IV ONE (20:05)
[2019-08-11] MEDS ORDERED: LIDOCAINE 1% INJ 10MG/ML (20 ML MDV) ONE (20:05)
[2019-08-11] MEDS ORDERED: fentaNYL (PF) 50 MCG/ML 2 ML AMP ONE (20:05)
[2019-08-11] MEDS ORDERED: ROCURONIUM BROMIDE 10 MG/ML 10 ML VIAL IV ONE (20:05)
[2019-08-11] MEDS ORDERED: SODIUM CHLORIDE 0.9% 50 ML with ceFAZolin 1,000 MG IV ONE ×2 (20:10)
[2019-08-11] MEDS ORDERED: BUPIVACAINE (PF) 0.25% 30 ML VIAL SQ ONE (20:30)
[2019-08-11] MEDS ORDERED: MEPERIDINE 50 MG/ML SYRINGE IVP ONE (21:52)
[2019-08-11] MEDS ORDERED: ONDANSETRON 4 MG/2 ML VIAL IVP PRN (22:12)
[2019-08-11] MEDS ORDERED: SIMETHICONE 80 MG CHEWABLE PO PRN (22:12)
[2019-08-11] MEDS ORDERED: diphenhydrAMINE 50 MG/ML 1 ML VIAL IVP PRN (22:12)
[2019-08-11] MEDS ORDERED: NALOXONE 0.4 MG/ML 1 ML VIAL IV PRN (22:12)
[2019-08-11] MEDS ORDERED: METOCLOPRAMIDE 5 MG/ML 2 ML VIAL IVP PRN (22:12)
--- NOTE | 2019-08-11 22:21 | P.OP ---
Date of Procedure: 08/11/19 Preoperative Diagnosis: Acute abdominal pain Large right ovarian mass Incidental very early Postoperative Diagnosis: Acute abdominal pain Right tubo-ovarian torsion Large right dermoid cyst Incidental very early Procedure(s) Performed: Laparoscopy Right oophorectomy Anesthesia: BARBARA Surgeon: Lucrecia George Estimated Blood Loss (ml): 20 Pathology: other (Right ovary) Condition: stable Disposition: floor Indications for Procedure: This is a 23-year-old female 3 para 1011 who presented to the emergency room with acute abdominal pain that began suddenly at approximate 7 AM this morning. Her pain was very minimally relieved with multiple doses of IV pain medication in the emergency room. She was incidentally found to be with a beta hCG of 16. Ultrasound showed a large 7-8 cm complex cystic mass in the right ovary with minimal blood flow to the ovary. The left ovary showed a small what appeared to be corpus luteum cyst. No intrauterine was noted. In light of these findings and her severe pain, I had a high suspicion for ovarian torsion. The patient and her were counseled regarding surgery with laparoscopy and possible laparotomy along with possible salpingo- oophorectomy. They were also counseled regarding potential for infertility and potential for loss of her current . I have discussed the risks, benefits, and alternative therapies for the above- mentioned procedure and for both sedation/anesthesia as well as necessary blood products administration, if indicated, as they pertain to this patient. The patient has indicated her understanding and acceptance of the risks and procedures discussed. Operative Findings: The right ovary was enlarged to approximately 7-8 cm and the tube and ovary were torsed 3 times on the right side. The left ovary appeared normal size with a possible small follicular cyst. The left tube appeared normal and the right tube also once it was untwisted appeared normal. There was a small decidual reaction on the end of the left fallopian tube. Once the right ovary was untwisted, it appeared to have fairly good blood flow to it. There was what appeared to be a simple-appearing cyst on the proximal portion of the ovary. The remaining portion of the ovary when opened with a J hook did show a thick yellow mucousy discharge with hair noted. This is consistent with a right dermoid cyst. Appendix was visualized and appeared normal. Description of Procedure: The patient was taken to the operating room where she is placed in the dorsal lithotomy position. She is prepped and draped in the normal sterile fashion. Her bladder is drained with catheter. Examination is performed under anesthesia. Uterus is mid to retroverted position and there is a palpable mass anterior to the uterus. No left adnexal masses were palpated. Next a ring forcep with a sponge was moistened and placed within the vagina to use as a manipulator. Surgeon changed and attention was turned to the abdomen. The infraumbilical fold was grasped with 2 Allis clamps. A small transverse incision was made with a scalpel. Next a hemostat was used to carry the incision down to the underlying layer of fascia. A towel clip was placed above the umbilicus for retraction. Next a 10 mm disposable blade this trocar was inserted into the peritoneum under direct visualization. Once inside, the placer miner was removed and pneumoperitoneum was achieved with CO2 gas. The camera was replaced and no bleeding was noted. Next a small stab incision was made with a scalpel suprapubically. A 5 mm disposable blade this trocar was inserted under direct visualization. The pelvic contents were inspected. The right tube and ovary were sitting on top of the uterus and torsion was visualized. There did appear to be fairly good blood flow still to the ovary. The ovary was then pushed with a probe and untwisted 3 times. Once the ovary was untwisted, the tube did appear to be normal although slightly dilated. The ovary did continue to want to turn back and torse again. An aspirating needle was then placed and a small stab incision was placed on the proximal portion of the ovary and approximately 15 mL of straw-colored fluid were removed. This was discarded. Another stab incision was made further out on the ovary on what appeared to be a soft area. A thick mucous discharge was noted. Next a J-hook was used to open this area slightly further and a suction hardwood floor layer was placed into the ovary and when attempting to suction a very thick yellow discharge was noted with her also coming out of the ovary. At this point it was determined that she does have a dermoid cyst on her right ovary. Since there was no visible normal ovary seen, the decision was made to remove the ovary completely. A second 5 mm port was then placed in the left lower abdomen after making a small stab incision. This was so a grasper could be placed to stabilize the ovary. A LigaSure was used to clamp the uterine ovarian ligament and this was cauterized and cut. Next the mesosalpinx was also grasped with the LigaSure, cauterized, and then cut. The infundibulopelvic ligament was then grasped with the LigaSure, cauterized, and then cut. Once the ovary was freed the remaining area was inspected. The area appeared hemostatic. Incidentally her appendix was visualized and appeared normal. Next a 5 mm camera was obtained and placed through the left lower port for visualization. An Endo Catch bag was then placed through the 10 mm port and a grasper was used to push the ovary into the Endo Catch bag. Once it was inside the bag, the bag was closed. The bag was then brought up to the incision and the trocar was removed. The incision was then opened up a little bit on either side in a horizontal fashion. There is also a small cut on the fascia inferiorly to make enough room for the Endo Catch bag to come through. All in all the incision was extended to approximately 2 inches long. The Endo Catch bag was then brought through the incision and once it was removed of gloved hand with gauze was placed over the hole to hold the gas and. Next suction irrigation was carried out and the area did appear to be hemostatic. At this point the remaining trochars were removed and the fascial incision on the upper trocar site was closed with 0 Vicryl suture in a running fashion. The subcutaneous tissue on the upper incision was closed with 2-0 Vicryl suture in a running fashion. Next the skin incision was closed with 4-0 undyed Vicryl suture in a subcuticular fashion. The 2 smaller 5 mm ports were then closed wit h 4-0 undyed Vicryl suture in a subcuticular fashion. Incision sites were then injected with quarter percent Marcaine. Approximately 8 mL was used. Next the ring forcep with a wet sponge was removed from the vaginal area. All sponge and needle counts were correct. The patient was then taken to recovery room in stable condition.
[2019-08-11] MEDS ORDERED: HYDROmorphone PCA 10 MG/50 ML BAG IV PRN (22:30)
[2019-08-11 23:12] VITALS: BMI 62.4
[2019-08-12] MEDS: LACTATED RINGERS 1,000 ML IV SCH ×2 (00:25→05:36)
[2019-08-12 08:15] LABS: Basophils % (A) 0 %; Eosinophils # (A) 0.2 k/uL (0-0.7); Eosinophils % (A) 1 %; HCT 38.4 % (34.0-46.0); HGB 13.2 gm/dL (11.4-16.0); Lymphocytes # (A) 1.8 k/uL (1.0-4.8); Lymphocytes % (A) 13 %; MCHC 34.3 g/dL (31.0-37.0); MCV 87.5 fL (80.0-100.0); Mean Platelet Volume 6.8; Monocytes # (A) 0.5 k/uL (0-1.0); Monocytes % (A) 3 %; Neutrophils # (A) 11.9 k/uL (1.3-7.7); Neutrophils % (A) 82 %; Platelet Count 304 k/uL (150-450); RBC 4.39 m/uL (3.80-5.40); RDW 13.3 % (11.5-15.5); WBC 14.4 k/uL (3.8-10.6)
[2019-08-12 08:38] VITALS: BP 118/73; PULSE 86; RESP 18; TEMP 99.3
[2019-08-12] MEDS ORDERED: HYDROcodone/APAP 5-325MG 1 EACH TAB PO PRN (08:41)
[2019-08-12] MEDS ORDERED: SENNOSIDES 8.6 MG TAB PO PRN (08:42)
--- NOTE | 2019-08-12 08:49 | P.DS ---
Providers Date of admission: 08/11/19 19:44 Expected date of discharge: 08/12/19 Attending physician: Sabrina Gallardo Primary care physician: Saleem Cotto - Discharge Diagnosis(es) (1) Acute abdominal pain in right lower quadrant Current Visit: Yes Status: Acute (2) Incidental confirmed Current Visit: Yes Status: Acute (3) Ovarian mass, right Current Visit: Yes Status: Acute Hospital Course: This is a 23-year-old female 3 para 1 who presented with severe abdominal pain and was diagnosed with a right tubal ovarian torsion intraoperatively. She underwent a laparoscopic right oophorectomy on 2018. Postoperatively her severe pain is gone however she does have some postsurgical pain. 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 She has not passed flatus yet. She is ambulating without difficulty. She has no vaginal bleeding. She also has an incidental with a beta-hCG level of 16. Vital signs are stable. Abdomen is soft with faint bowel sounds 4. Incisions are clean dry and intact with Steri-Strips in place. Extremities show negative Homans. Impression is status post laparoscopy with right oophorectomy secondary to ovarian torsion and large dermoid cyst. Plan is to discharge home today. She will be given nor co-for pain. She has signed a start opioid talking form. She is counseled on opioid use. She is advised to follow up in the office with me in approximately 1 week for a postoperative check. I will give her an order to repeat a beta hCG level on Thursday to confirm viability of her . All of her questions were answered. She is advised to call the office if she has any further concerns prior to her appointment time. Procedures: Laparoscopy with right oophorectomy due to large dermoid cyst and ovarian to rsion on 08/11/2019 Patient Condition at Discharge: Stable Plan - Discharge Summary New Discharge Prescriptions: New HYDROcodone/APAP 5-325MG [[place] 5-325] 1 each PO Q4HR PRN #42 tab PRN Reason: Pain Discharge Medication List HYDROcodone/APAP 5-325MG [[place] 5-325] 1 each PO Q4HR PRN #42 tab 08/12/19 [Rx] Follow up Appointment(s)/Referral(s): Saleem Cotto DO [Primary Care Provider] - 1-2 days Lucrecia George DO [Doctor of Osteopathic Medicine] - 1 Week Activity/Diet/Wound Care/Special Instructions: Activity as tolerated. Diet as tolerated. May shower, but no tub baths for 1 week. Discharge Disposition: HOME SELF-CARE
[2019-08-12] MEDS ORDERED: ACETAMINOPHEN TAB 325 MG TAB PO PRN (21:58)
== END 2019-08-12 13:04 | disposition home or self-care (01) ==
LOC: EC 11:45 → 6PED 19:44
PROVIDERS: ADMIT Obstetrics & Gynecology; ATTEND Obstetrics & Gynecology
DX: N83.53 Torsion of ovary, ovarian pedicle and fallopian tube (principal); D27.0 Benign neoplasm of right ovary; N83.12 Corpus luteum cyst of left ovary; O21.9 Vomiting of pregnancy, unspecified; Z3A.10 10 weeks gestation of pregnancy; F17.200 Nicotine dependence, unspecified, uncomplicated; Z83.49 Family history of other endocrine, nutritional and metabolic diseases
CPT/HCPCS: 36415; 76801; 76817; 80053; 81003; 83605; 83690; 84702; 84703; 85025; 86850; 86900; 86901; 88307; 93975; 96361; 96374; 96375; 96376; 99285

== ENCOUNTER → 2019-08-17 | Outpatient (CLI) | payer BC | END | disposition home or self-care (01) | LOC: LABWHC1 13:04 | PROVIDERS: ATTEND Obstetrics & Gynecology | DX: Z33.1 Pregnant state, incidental (principal) | CPT/HCPCS: 36415; 84702 ==

== ENCOUNTER → 2020-04-19 | Outpatient (CLI) | payer BC | END | disposition home or self-care (01) | LOC: LABWHC1 14:24 | PROVIDERS: ATTEND Obstetrics & Gynecology | DX: Z11.59 Encounter for screening for other viral diseases (principal) ==

== ENCOUNTER 2020-04-20 05:59 | Inpatient (IN) | payer BC ==
[2020-04-20] MEDS ORDERED: LIDOCAINE 0.5% (PF) 5 MG/ML (50 ML SDV) SQ PRN (06:24)
[2020-04-20] MEDS ORDERED: CARBOPROST TROMETHAMINE 250 MCG/ML 1 ML AMP IM PRN (06:24)
[2020-04-20] MEDS ORDERED: METHYLERGONOVINE 0.2 MG/ML 1 ML AMP IM PRN (06:24)
[2020-04-20] MEDS ORDERED: TERBUTALINE 1 MG/ML VIAL SQ PRN (06:24)
[2020-04-20] MEDS ORDERED: OXYTOCIN 10 UNIT/ML 1 ML VIAL IM PRN (06:24)
[2020-04-20] MEDS ORDERED: OXYTOCIN 30 UNITS/500 ML NS 30 UNIT in SALINE 1 500ML.BAG IV SCH (06:30)
[2020-04-20 06:48] LABS: Basophils % (A) 0 %; Eosinophils # (A) 0.1 k/uL (0-0.7); Eosinophils % (A) 1 %; HCT 38.1 % (34.0-46.0); HGB 12.7 gm/dL (11.4-16.0); Lymphocytes % (A) 16 %; MCH 30.4 pg (25.0-35.0); MCHC 33.3 g/dL (31.0-37.0); MCV 91.2 fL (80.0-100.0); Mean Platelet Volume 7.4; Monocytes # (A) 0.5 k/uL (0-1.0); Monocytes % (A) 4 %; Neutrophils # (A) 9.8 k/uL (1.3-7.7); Neutrophils % (A) 78 %; Platelet Count 350 k/uL (150-450); RBC 4.18 m/uL (3.80-5.40); RDW 13.5 % (11.5-15.5); WBC 12.6 k/uL (3.8-10.6)
[2020-04-20] MEDS: LACTATED RINGERS 1,000 ML IV SCH ×2 (07:02→09:47)
[2020-04-20] MEDS ORDERED: BUTORPHANOL 1 MG/ML 1 ML VIAL IV PRN (08:12)
[2020-04-20] MEDS ORDERED: SODIUM CHLORIDE 0.9% 100 ML BAG ONE (09:58)
[2020-04-20] MEDS ORDERED: ROPIVACAINE 5MG/ML 20ML VIAL ONE (09:58)
[2020-04-20] MEDS ORDERED: fentaNYL (PF) 50 MCG/ML 5 ML AMP ONE (09:58)
[2020-04-20] MEDS ORDERED: WITCH HAZEL 1 EACH MED..PAD TOPICAL PRN (14:19)
[2020-04-20] MEDS ORDERED: diphenhydrAMINE 25 MG CAP PO PRN (14:19)
[2020-04-20] MEDS ORDERED: SIMETHICONE 80 MG CHEWABLE PO PRN (14:19)
[2020-04-20] MEDS ORDERED: ZOLPIDEM 5 MG TAB PO PRN (14:19)
[2020-04-20] MEDS ORDERED: diphenhydrAMINE 50 MG CAP PO PRN (14:19)
[2020-04-20] MEDS ORDERED: BENZOCAINE/MENTHOL SPRAY 1 GM/SPRAY AEROSOL TOPICAL PRN (14:19)
[2020-04-20] MEDS ORDERED: LANOLIN CREAM 5 GM TUBE TOPICAL PRN (14:19)
[2020-04-20] MEDS ORDERED: HYDROCORTISONE 2.5% RECTAL CREAM 30 GM TUBE RECTAL PRN (14:19)
[2020-04-20] MEDS ORDERED: OXYTOCIN 20 UNITS/1000 ML NS 1,000 ML IV SCH (14:30)
--- NOTE | 2020-04-20 17:08 | P.HPOB ---
History of Present Illness H&P Date: 04/20/20 Chief Complaint: Induction of labor 24-year-old presented at 39 weeks and 3 days for induction of labor. Her cervix is 1 cm dilated, 70% effaced, and -2 station. She is bridget irregularly. heart tones 130 with moderate variability and reactive. Review of Systems All systems: negative Constitutional: Denies chills, Denies fever Eyes: denies blurred vision, denies pain Ears, nose, mouth and throat: Denies headache, Denies sore throat Cardiovascular: Denies chest pain, Denies shortness of breath Respiratory: Denies cough Gastrointestinal: Denies abdominal pain, Denies diarrhea, Denies nausea, Denies vomiting Genitourinary: Denies dysuria, Denies hematuria Musculoskeletal: Denies myalgias Integumentary: Denies pruritus, Denies rash Neurological: Denies numbness, Denies weakness Psychiatric: Denies anxiety, Denies depression Endocrine: Denies fatigue, Denies weight change Past Medical History Past Medical History: No Reported History Additional Past Medical History / Comment(s): OB history: first was a spontaneous . Second was a vaginal delivery. This is her third and she has had care with me since 10 weeks. O+, abs neg,Rub Imm, RPR NR, HEp Bneg, HIV NR. GBS negative History of Any Multi-Drug Resistant Organisms: None Reported Past Surgical History: Orthopedic Surgery Additional Past Surgical History / Comment(s): Bilateral knee arthroscopy, wisdom teeth extracted. oophorectomy 08/11/19 Past Anesthesia/Blood Transfusion Reactions: No Reported Reaction Past Psychological History: ADD/ADHD Smoking Status: Current every day smoker Past Alcohol Use History: None Reported, Rare Additional Past Alcohol Use History / Comment(s): 1/2 ppd Past Drug Use History: None Reported - Past Family History Mother Family Medical History: Thyroid Disorder Additional Family Medical History / Comment(s): "borderline diabetes", ovarian mass Father Family Medical History: No Reported History, Osteoarthritis (OA) Medications and Allergies Home Medications Medication Instructions Recorded Confirmed Type Pnv,Calcium 72/Iron/Folic Acid 1 tab PO DAILY 04/20/20 04/20/20 History [ Plus Tablet] Allergies Allergy/AdvReac Type Severity Reaction Status Date / Time egg Allergy Nausea & Verified 05/29/20 06:23 Vomiting adhesive tape AdvReac Severe Rash/Hives Verified 04/20/20 06:23 Exam Osteopathic Statement: *. No significant issues noted on an osteopathic structural exam other than those noted in the History and Physical/Consult. Vital Signs Temp Pulse Resp BP Pulse Ox 04/20/20 16:00 97.2 F L 90 18 137/57 04/20/20 15:30 97.0 F L 85 18 103/54 04/20/20 15:00 97.0 F L 65 18 118/67 04/20/20 14:45 68 111/56 04/20/20 14:30 96.7 F L 70 18 109/58 04/20/20 14:15 71 109/54 04/20/20 14:00 97.0 F L 71 18 108/53 04/20/20 06:22 96.6 F L 75 16 126/75 98 Intake and Output 04/20/20 04/20/20 04/20/20 06:59 14:59 22:59 Output Total 100 Balance -100 Output: Estimated Blood Loss 100 Other: # Voids 1 Weight 88.451 kg Heart: Regular rate and rhythm Lungs: Clear to auscultation bilaterally Abdomen: Soft, nontender Extremities: Negative Homans sign Results Result Diagrams: 04/20/20 06:20 Abnormal Lab Results - Last 24 Hours (Table) 04/20/20 Range/Units 06:20 WBC 12.6 H (3.8-10.6) k/uL Neutrophils # 9.8 H (1.3-7.7) k/uL Assessment and Plan (1) Normal labor Current Visit: No Status: Acute Code(s): O80 - ENCOUNTER FOR FULL-TERM UNCOMPLICATED DELIVERY; Z37.9 - OUTCOME OF DELIVERY, UNSPECIFIED SNOMED Code(s): 83566542 Plan: 1. Induction of labor with amniotomy and Pitocin 2. Anticipate normal vaginal delivery
--- NOTE | 2020-04-20 17:11 | P.PROBDLV ---
Vaginal Delivery Note - . Vaginal Delivery Note: 24-year-old presented at 39 weeks and 3 days for induction of labor. Her cervix is 1 cm dilated, 70% effaced, and -2 station. She is bridget irregularly. heart tones 130 with moderate variability and reactive. Pitocin was started. Amniotomy was performed at 7:19 AM and clear fluid noted. She got very uncomfortable quickly and got an epidural. Her cervix was completely dilated at 1328. She pushed to a +1 station. The heart tones went down to the 80s and continue with moderate variability but were not coming back to baseline. Informed consent was obtained for a vacuum delivery. I drained the bladder and verified position of the head. I placed the vacuum in the normal fashion. With the next contraction I applied the suction and with 1 pull and no pop offs baby's head delivered SOUMYA. Nuchal cord 1 easily reduced. Anterior shoulder delivered gentle downward guidance for by posterior shoulder and rest of body. Nose and mouth bulb suctioned, cord clamped and cut, placed on mother's abdomen. Apgars 8, 9, weight 7 lbs. 5 oz. Placenta delivered spontaneously, intact with three-vessel cord at 1344. Vagina, cervix, perineum inspected. First-degree midline laceration was repaired with 3-0 Vicryl. Quantitative blood loss at delivery was 330 mL.
[2020-04-20] MEDS: IBUPROFEN 600 MG TAB PO PRN (20:58)
[2020-04-20] MEDS: SENNOSIDES-DOCUSATE SODIUM 1 EACH TAB PO SCH (20:59)
[2020-04-20] MEDS: ACETAMINOPHEN TAB 325 MG TAB PO PRN (23:45)
[2020-04-21] MEDS: IBUPROFEN 600 MG TAB PO PRN (02:36)
--- NOTE | 2020-04-21 05:16 | P.DS ---
Providers Date of admission: 04/20/20 05:59 Expected date of discharge: 04/21/20 Attending physician: Sabrina Gallardo Primary care physician: Stated None Hospital Course: This is a 24-year-old female 3 para 1 at 39-3/7 weeks who presented for induction of labor. She underwent a vacuum-assisted vaginal delivery for delivery of a viable female infant on 04/20/2020. Apgars were 8 at 1 minute and 9 at 5 minutes and weight was 7 lbs. 5 oz. Her course has been essentially uncomplicated. Lochia is decreasing. Her pain is well-controlled. Vital signs are stable. Abdomen is soft with fundus firm and nontender. Extremities show negative Homans. Impression is status post vaginal delivery day #1. Plan is to discharge home today. Routine instructions are given. She will be given a prescription for ibuprofen. She states she has a breast pump at home. She is advised to follow up with Dr. Gallardo in 6 weeks. She is advised to call the office if she has any further questions or concerns prior to her appointment time. Procedures: Oxytocin induction of labor Vacuum-assisted vaginal delivery of a viable female on 04/20/2020 Patient Condition at Discharge: Stable Plan - Discharge Summary New Discharge Prescriptions: New Ibuprofen [Motrin] 600 mg PO Q6HR PRN #60 tab PRN Reason: Mild Pain Or Fever >= 100.5 Continue Pnv,Calcium 72/Iron/Folic Acid [ Plus Tablet] 1 tab PO DAILY Discharge Medication List Pnv,Calcium 72/Iron/Folic Acid [ Plus Tablet] 1 tab PO DAILY 04/20/20 [History] Ibuprofen [Motrin] 600 mg PO Q6HR PRN #60 tab 04/21/20 [Rx] Follow up Appointment(s)/Referral(s): Sabrina Gallardo DO [Doctor of Osteopathic Medicine] - 1 Week Activity/Diet/Wound Care/Special Instructions: Instructions 1. Do not begin any exercise program for 3 weeks. 2. Do not resume sexual relations for 3 weeks or longer if uncomfortable. 3. You may take tub baths or showers at any time. 4. You may use tampons if desired after 3 weeks. 5. Keep the area of episiotomy (stitches) clean and dry. 6. If you are not nursing, wear a good fitting, supportive bra during the day and limit fluid intake for at least 1 week to prevent breast engorgement. 7. Call the office, [phone], within the next week to make appointment for your 6 week checkup if it has not already been made. 8. Report any of the following occurrences to the doctor promptly: a. Heavy, excessive bleeding b. Chills, fever c. Burning or frequency of urination d. Pain or redness and breasts if nursing e. Increasing pain or swelling in episiotomy (stitches). In addition to the above instructions, the following additional should be followed: 1. No heavy lifting or straining (exercising) until after 6 week checkup. 2. Keep abdominal incision clean and dry: You may wear a dressing if more comfortable. 3. Make office appointment for 10 days after going home or as instructed by her doctor. Discharge Disposition: HOME SELF-CARE
[2020-04-21] MEDS: ACETAMINOPHEN TAB 325 MG TAB PO PRN (07:27)
[2020-04-21] MEDS: SENNOSIDES-DOCUSATE SODIUM 1 EACH TAB PO SCH (07:28)
[2020-04-21 07:56] LABS: Basophils % (A) 0 %; Eosinophils # (A) 0.1 k/uL (0-0.7); Eosinophils % (A) 1 %; HCT 35.2 % (34.0-46.0); Lymphocytes # (A) 1.9 k/uL (1.0-4.8); Lymphocytes % (A) 16 %; MCH 31.6 pg (25.0-35.0); MCV 92.9 fL (80.0-100.0); Mean Platelet Volume 7.6; Monocytes # (A) 0.3 k/uL (0-1.0); Monocytes % (A) 3 %; Neutrophils # (A) 9.6 k/uL (1.3-7.7); Neutrophils % (A) 79 %; Platelet Count 288 k/uL (150-450); RBC 3.79 m/uL (3.80-5.40); RDW 13.6 % (11.5-15.5)
[2020-04-21 08:40] VITALS: BP 113/59; PULSE 64; RESP 17; TEMP 97.6
== END 2020-04-21 13:50 | disposition home or self-care (01) | DRG 807 ==
LOC: 4FBP 05:59
PROVIDERS: ADMIT Obstetrics & Gynecology; ATTEND Obstetrics & Gynecology
PROC: 3E033VJ Introduction of Other Hormone into Peripheral Vein, Percutaneous Approach (ICD-10-PCS; principal; 2020-04-20)
PROC: 0HQ9XZZ Repair Perineum Skin, External Approach (ICD-10-PCS; principal; 2020-04-20)
PROC: 10907ZC Drainage of Amniotic Fluid, Therapeutic from Products of Conception, Via Natural or Artificial Opening (ICD-10-PCS; principal; 2020-04-20)
PROC: 10D07Z6 Extraction of Products of Conception, Vacuum, Via Natural or Artificial Opening (ICD-10-PCS; principal; 2020-04-20)
DX: O99.334 Smoking (tobacco) complicating childbirth (principal); Z37.0 Single live birth; O76 Abnormality in fetal heart rate and rhythm complicating labor and delivery; O99.344 Other mental disorders complicating childbirth; O70.0 First degree perineal laceration during delivery; O69.81X0 Labor and delivery complicated by cord around neck, without compression, not applicable or unspecified; F17.210 Nicotine dependence, cigarettes, uncomplicated; F90.9 Attention-deficit hyperactivity disorder, unspecified type; Z3A.39 39 weeks gestation of pregnancy; Z91.012 Allergy to eggs
CPT/HCPCS: 85025; 86850; 86900; 86901

== ENCOUNTER 2020-06-18 19:08 | Emergency (ER) | payer BC ==
[2020-06-18 19:21] VITALS: RESP 18
[2020-06-18] MEDS ORDERED: ONDANSETRON 4 MG/2 ML VIAL IVP STA (19:45)
[2020-06-18] MEDS ORDERED: SODIUM CHLORIDE 0.9% 1,000 ML IV STA (19:45)
[2020-06-18] MEDS ORDERED: KETOROLAC 30 MG/ML 1 ML VIAL IVP STA (19:45)
[2020-06-18 20:18] LABS: Appearance,Urine Clear (Clear); Bilirubin,Urine Negative (Negative); Blood,Urine Negative (Negative); Color,Urine Yellow; Glucose,Urine (UA) Negative (Negative); Ketones,Urine Negative (Negative); Leukocyte Esterase,Urine Trace (Negative); Mucus,Urine Rare /hpf; Nitrite,Urine Negative (Negative); PH, Urine 5.5 (5.0-8.0); Protein,Urine Negative (Negative); RBC,Urine 1 /hpf (0-5); Specific Gravity,Urine 1.021 (1.001-1.035); Squamous Epithelial Cell,Urine 1 /hpf (0-4); Urobilinogen,Urine <2.0 mg/dL (<2.0); WBC,Urine 2 /hpf (0-5)
[2020-06-18 20:25] LABS: Basophils % (A) 0 %; Eosinophils # (A) 0.2 k/uL (0-0.7); Eosinophils % (A) 3 %; HCT 41.6 % (34.0-46.0); HGB 13.5 gm/dL (11.4-16.0); Lymphocytes # (A) 2.3 k/uL (1.0-4.8); Lymphocytes % (A) 31 %; MCH 28.9 pg (25.0-35.0); MCHC 32.5 g/dL (31.0-37.0); MCV 88.6 fL (80.0-100.0); Mean Platelet Volume 6.7; Monocytes # (A) 0.3 k/uL (0-1.0); Monocytes % (A) 4 %; Neutrophils # (A) 4.6 k/uL (1.3-7.7); Neutrophils % (A) 60 %; Platelet Count 361 k/uL (150-450); RBC 4.69 m/uL (3.80-5.40); RDW 12.2 % (11.5-15.5); WBC 7.6 k/uL (3.8-10.6)
--- NOTE | 2020-06-18 20:25 | XR ---
EXAMINATION TYPE: XR KUB DATE OF EXAM: 06/18/2020 COMPARISON: NONE HISTORY: Right lower quadrant pain TECHNIQUE: 2 views upright FINDINGS: Bowel gas pattern is normal. There is no sign of intestinal obstruction or pneumoperitoneum . Fecal pattern is normal. Lung bases are clear. There are no pathologic calcifications over the kidn eys. IMPRESSION: Nonacute abdomen.
[2020-06-18 20:27] LABS: ALT 16 U/L (4-34); AST 20 U/L (14-36); African American GFR (CKD) >90 (>60 ml/min/1.73 sqM); Alkaline Phosphatase 124 U/L (38-126); Amylase 44 U/L (30-110); Anion Gap 8 mmol/L; Blood Urea Nitrogen 13 mg/dL (7-17); Calcium 9.5 mg/dL (8.4-10.2); Carbon Dioxide 27 mmol/L (22-30); Chloride 105 mmol/L (98-107); Glucose 101 mg/dL (74-99); Non-African American GFR(CKD) >90 (>60 ml/min/1.73 sqM); Potassium 3.4 mmol/L (3.5-5.1); Sodium 140 mmol/L (137-145); Total Bilirubin 0.3 mg/dL (0.2-1.3); Total Protein 7.1 g/dL (6.3-8.2)
--- NOTE | 2020-06-18 20:29 | ED ---
Abdominal Pain HPI - General Chief Complaint: Abdominal Pain Stated Complaint: lower abd pain Time Seen by Provider: 06/18/20 19:23 Source: patient, RN notes reviewed, old records reviewed Mode of arrival: ambulatory Limitations: no limitations - History of Present Illness Initial Comments: 24-year-old female presents emergency department today for right-sided abdominal pain. Patient been having pain for the past 5 days. She reports that occasionally sharp and stabbing in nature. Denies any fevers or chills. Patient has history of right oophorectomy. She's not had a menstrual cycle since giving to her child 2 months ago. Denies abnormal vaginal discharge. She states that she's had no fevers or chills. - Related Data Home Medications Medication Instructions Recorded Confirmed Pnv,Calcium 72/Iron/Folic Acid 1 tab PO DAILY 04/20/20 04/20/20 [ Plus Tablet] Previous Rx's Medication Instructions Recorded Ibuprofen [Motrin] 600 mg PO Q6HR PRN #60 tab 04/21/20 Allergies Allergy/AdvReac Type Severity Reaction Status Date / Time egg Allergy Nausea & Verified 06/18/20 19:21 Vomiting adhesive tape AdvReac Severe Rash/Hives Verified 06/18/20 19:21 Review of Systems ROS Statement: Those systems with pertinent positive or pertinent negative responses have been documented in the HPI. ROS Other: All systems not noted in ROS Statement are negative. Past Medical History Past Medical History: No Reported History Additional Past Medical History / Comment(s): OB history: first was a spontaneous . Second was a vaginal delivery. This is her third and she has had care with me since 10 weeks. O+, abs neg,Rub Imm, RPR NR, HEp Bneg, HIV NR. GBS negative History of Any Multi-Drug Resistant Organisms: None Reported Past Surgical History: Orthopedic Surgery Additional Past Surgical History / Comment(s): Bilateral knee arthroscopy, wisdom teeth extracted. oophorectomy 08/11/19 Past Anesthesia/Blood Transfusion Reactions: No Reported Reaction Past Psychological History: ADD/ADHD Past Alcohol Use History: None Reported, Rare Past Drug Use History: None Reported - Past Family History Mother Family Medical History: Thyroid Disorder Additional Family Medical History / Comment(s): "borderline diabetes", ovarian mass Father Family Medical History: No Reported History, Osteoarthritis (OA) General Exam - General Exam Comments Initial Comments: 24-year-old female. Alert and oriented. No distress. Limitations: no limitations General appearance: alert, in no apparent distress Head exam: Present: atraumatic, normocephalic, normal inspection Eye exam: Present: normal appearance, PERRL, EOMI. Absent: scleral icterus, conjunctival injection, periorbital swelling ENT exam: Present: normal exam, mucous membranes moist Neck exam: Present: normal inspection. Absent: tenderness, meningismus, lymphadenopathy Respiratory exam: Present: normal lung sounds bilaterally. Absent: respiratory distress, wheezes, rales, rhonchi, stridor Cardiovascular Exam: Present: regular rate, normal rhythm, normal heart sounds. Absent: systolic murmur, diastolic murmur, rubs, gallop, clicks GI/Abdominal exam: Present: soft, normal bowel sounds. Absent: distended, tenderness, guarding, rebound, rigid Extremities exam: Present: normal inspection, full ROM, normal capillary refill. Absent: tenderness, pedal edema, joint swelling, calf tenderness Back exam: Present: normal inspection Neurological exam: Present: alert, oriented X3, CN II-XII intact Psychiatric exam: Present: normal affect, normal mood Skin exam: Present: warm, dry, intact, normal color. Absent: rash Course Vital Signs 06/18/20 19:16 Temperature 98.3 F Pulse Rate 80 Respiratory 18 Rate Blood Pressure 115/72 O2 Sat by Pulse 99 Oximetry Medical Decision Making - Medical Decision Making 24 year old female with chief complaint of right-sided abdominal pain periumbilical and towards the lower quadrant for the past 5 days. No fever. Pains are intermittent. had some minimal right-sided tenderness. Labs are reviewed and unremarkable. Due to persistent pain and tenderness computed tomography scan was performed. CT shows no sign of appendicitis and was normal according to Dr. Cline. She does have a history of right oophorectomy no concern for ovarian torsion. She has no vaginal bleeding or discharge. Discussed following up with primary care doctor for further evaluation and testing. - Lab Data Result diagrams: 06/18/20 20:14 06/18/20 20:14 Lab Results 06/18/20 06/18/20 06/18/20 Range/Units 19:54 20:14 20:14 WBC 7.6 (3.8-10.6) k/uL RBC 4.69 (3.80-5.40) m/uL Hgb 13.5 (11.4-16.0) gm/dL Hct 41.6 (34.0-46.0) % MCV 88.6 (80.0-100.0) fL MCH 28.9 (25.0-35.0) pg MCHC 32.5 (31.0-37.0) g/dL RDW 12.2 (11.5-15.5) % Plt Count 361 (150-450) k/uL Neutrophils % 60 % Lymphocytes % 31 % Monocytes % 4 % Eosinophils % 3 % Basophils % 0 % Neutrophils # 4.6 (1.3-7.7) k/uL Lymphocytes # 2.3 (1.0-4.8) k/uL Monocytes # 0.3 (0-1.0) k/uL Eosinophils # 0.2 (0-0.7) k/uL Basophils # 0.0 (0-0.2) k/uL PT 9.7 (9.0-12.0) sec INR 0.9 (<1.2) APTT 25.7 (22.0-30.0) sec Sodium (137-145) mmol/L Potassium (3.5-5.1) mmol/L Chloride (98-107) mmol/L Carbon Dioxide (22-30) mmol/L Anion Gap mmol/L BUN (7-17) mg/dL Creatinine (0.52-1.04) mg/dL Est GFR (CKD-EPI)AfAm (>60 ml/min/1.73 sqM) Est GFR (CKD-EPI)NonAf (>60 ml/min/1.73 sqM) Glucose (74-99) mg/dL Calcium (8.4-10.2) mg/dL Total Bilirubin (0.2-1.3) mg/dL AST (14-36) U/L ALT (4-34) U/L Alkaline Phosphatase (38-126) U/L Total Protein (6.3-8.2) g/dL Albumin (3.5-5.0) g/dL Amylase (30-110) U/L Lipase (23-300) U/L Urine Color Yellow Urine Appearance Clear (Clear) Urine pH 5.5 (5.0-8.0) Ur Specific [place] 1.021 (1.001-1.035) Urine Protein Negative (Negative) Urine Glucose (UA) Negative (Negative) Urine Ketones Negative (Negative) Urine Blood Negative (Negative) Urine Nitrite Negative (Negative) Urine Bilirubin Negative (Negative) Urine Urobilinogen <2.0 (<2.0) mg/dL Ur Leukocyte Esterase Trace H (Negative) Urine RBC 1 (0-5) /hpf Urine WBC 2 (0-5) /hpf Ur Squamous Epith Cells 1 (0-4) /hpf Urine Mucus Rare H (None) /hpf 06/18/20 Range/Units 20:14 WBC (3.8-10.6) k/uL RBC (3.80-5.40) m/uL Hgb (11.4-16.0) gm/dL Hct (34.0-46.0) % MCV (80.0-100.0) fL MCH (25.0-35.0) pg MCHC (31.0-37.0) g/dL RDW (11.5-15.5) % Plt Count (150-450) k/uL Neutrophils % % Lymphocytes % % Monocytes % % Eosinophils % % Basophils % % Neutrophils # (1.3-7.7) k/uL Lymphocytes # (1.0-4.8) k/uL Monocytes # (0-1.0) k/uL Eosinophils # (0-0.7) k/uL Basophils # (0-0.2) k/uL PT (9.0-12.0) sec INR (<1.2) APTT (22.0-30.0) sec Sodium 140 (137-145) mmol/L Potassium 3.4 L (3.5-5.1) mmol/L Chloride 105 (98-107) mmol/L Carbon Dioxide 27 (22-30) mmol/L Anion Gap 8 mmol/L BUN 13 (7-17) mg/dL Creatinine 0.86 (0.52-1.04) mg/dL Est GFR (CKD-EPI)AfAm >90 (>60 ml/min/1.73 sqM) Est GFR (CKD-EPI)NonAf >90 (>60 ml/min/1.73 sqM) Glucose 101 H (74-99) mg/dL Calcium 9.5 (8.4-10.2) mg/dL Total Bilirubin 0.3 (0.2-1.3) mg/dL AST 20 (14-36) U/L ALT 16 (4-34) U/L Alkaline Phosphatase 124 (38-126) U/L Total Protein 7.1 (6.3-8.2) g/dL Albumin 4.0 (3.5-5.0) g/dL Amylase 44 (30-110) U/L Lipase 89 (23-300) U/L Urine Color Urine Appearance (Clear) Urine pH (5.0-8.0) Ur Specific [place] (1.001-1.035) Urine Protein (Negative) Urine Glucose (UA) (Negative) Urine Ketones (Negative) Urine Blood (Negative) Urine Nitrite (Negative) Urine Bilirubin (Negative) Urine Urobilinogen (<2.0) mg/dL Ur Leukocyte Esterase (Negative) Urine RBC (0-5) /hpf Urine WBC (0-5) /hpf Ur Squamous Epith Cells (0-4) /hpf Urine Mucus (None) /hpf 06/18/20 20:28 EKG shows sinus rhythm with marked sinus arrhythmia. Incomplete right bundle branch block. 4 EKG. Ventricular rate 66 bpm. Verbal 156 most seconds. QT QTc is 422 ms. QRS duration is 108 ms. - Radiology Data Radiology results: report reviewed verbal report was given to me by Dr. Cline due to technology error. He states that there is normal computed tomography scan. No signs of appendicitis or other inflammatory process for right-sided abdominal pain. Disposition Clinical Impression: Right sided abdominal pain Disposition: HOME SELF-CARE Condition: Good Instructions (If sedation given, give patient instructions): Abdominal Pain (ED) Additional Instructions: Please use antiinflammatory medication like motrin or tylenol as discussed. Please follow up with family doctor if symptoms have not improved over the next two days. Please return to the emergency room if your symptoms increase or worsen or for any other concerns. Is patient prescribed a controlled substance at d/c from ED?: No Referrals: Saleem Cotto DO [Primary Care Provider] - 1-2 days Time of Disposition: 22:15
[2020-06-18 20:30] LABS: INR 0.9 (<1.2); Partial Thromboplastin Time 25.7 sec (22.0-30.0); Prothrombin Time 9.7 sec (9.0-12.0)
[2020-06-18 22:35] VITALS: BP 116/55; PULSE 57; TEMP 97.9
--- NOTE | 2020-06-18 22:54 | CT ---
EXAMINATION TYPE: CT abdomen pelvis w con DATE OF EXAM: 06/18/2020 COMPARISON: None HISTORY: Right sided abdominal pain. History of right sided oophorectomy last year due to teratoma. CT DLP: 1200.9 mGycm Automated exposure control for dose reduction was used. CONTRAST: Performed with IV Contrast, patient injected with 100 mL of Isovue 300. Lung bases are clear. There is no pleural effusion. Heart size is normal. There is no pericardial eff usion. Liver spleen stomach pancreas appear normal. Gallbladder is contracted. Bile ducts are not dil ated. There is no adrenal mass. Kidneys show satisfactory contrast opacification. There is no hydronephrosi s. The ureters are not dilated. There is no retroperitoneal adenopathy. Bladder distends smoothly. Ut erus is anteverted. There is no free fluid in the pelvis. There is no inguinal hernia. Appendix is ar ound the cecum appears normal. There is no mesenteric edema. There is no ascites or free air. There is no evidence of a bowel obstru ction. The lumbar spine is intact. Bony pelvis is intact. IMPRESSION: Negative CT scan of the abdomen pelvis. Normal appendix.
== END 2020-06-18 22:27 | disposition home or self-care (01) ==
LOC: EC 19:08
DX: R10.31 Right lower quadrant pain (principal); Z91.012 Allergy to eggs; Z91.048 Other nonmedicinal substance allergy status; Z90.89 Acquired absence of other organs
CPT/HCPCS: 36415; 93005; 80053; 82150; 83690; 85025; 85610; 85730; 81001; 74018; 74177; 99285; 96374; 96375; J2405; J1885; Q9967

== ENCOUNTER → 2020-06-25 | Outpatient (CLI) | payer BC ==
--- NOTE | 2020-06-25 08:21 | US ---
EXAMINATION TYPE: US abdomen complete DATE OF EXAM: 06/25/2020 COMPARISON: CT abdomen and pelvis June 18, 2020 CLINICAL HISTORY: R10.9 Abdominal Pain N20.0 Calculus of kidney. EXAM MEASUREMENTS: Liver Length: 14.3 cm Gallbladder Wall: 0.2 cm CBD: 0.4 cm Spleen: 13.6 cm Right Kidney: 10.5 x 3.4 x 4.5 cm Left Kidney: 10.5 x 4.8 x 4.8 cm Pancreas: visualized portions wnl Liver: wnl Gallbladder: No stones seen Evidence for sonographic Means's sign: No CBD: wnl Spleen: measures 13.6 cm Right Kidney: No hydronephrosis or masses seen Left Kidney: No hydronephrosis or masses seen Upper IVC: wnl Abd Aorta: wnl The liver is homogenous. The intrahepatic portion of the IVC and visualized abdominal aorta through the bifurcation are within normal limits. There is no evidence of cholelithiasis. Common bile duct is unremarkable. The visualized portions of the pancreas are homogenous. The spleen is slightly enl arged without focal intrasplenic mass. Kidneys are symmetric and free of hydronephrosis. No renal l esions are seen. IMPRESSION: No acute findings are evident. No definitive nephrolithiasis or hydronephrosis bilaterall y. Mild splenomegaly which may warrant further workup. Findings correlated with recent CT.
== END | disposition home or self-care (01) ==
LOC: RADUSWWP 06:56
PROVIDERS: ATTEND Family Medicine
DX: R16.1 Splenomegaly, not elsewhere classified (principal)
CPT/HCPCS: 76700

== ENCOUNTER → 2020-10-16 | Outpatient (CLI) | payer BC | END | disposition home or self-care (01) | LOC: LABWHC1 15:50 | PROVIDERS: ATTEND Family Medicine | DX: Z03.818 Encounter for observation for suspected exposure to other biological agents ruled out (principal) | CPT/HCPCS: U0003; C9803 ==

== ENCOUNTER 2021-08-02 20:24 | Emergency (ER) | payer OTHER, BC ==
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
[2021-08-02 23:18] VITALS: BP 116/78; PULSE 81; RESP 16; TEMP 98
== END 2021-08-02 23:00 | disposition home or self-care (01) ==
LOC: EC 20:24
DX: S93.401A Sprain of unspecified ligament of right ankle, initial encounter (principal); F17.200 Nicotine dependence, unspecified, uncomplicated; Z79.1 Long term (current) use of non-steroidal anti-inflammatories (NSAID); Z83.49 Family history of other endocrine, nutritional and metabolic diseases; V89.2XXA Person injured in unspecified motor-vehicle accident, traffic, initial encounter; Y92.410 Unspecified street and highway as the place of occurrence of the external cause
CPT/HCPCS: 99284

== ENCOUNTER 2022-07-25 12:35 | Emergency (ER) | payer BC ==
[2022-07-25 12:38] VITALS: TEMP 97.9
[2022-07-25] MEDS ORDERED: DIPH,PERTUS(ACELL)TETVAC-LF 0.5 ML VIAL IM ONE (13:05)
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
[2022-07-25 13:20] VITALS: BP 128/72; PULSE 74; RESP 16
== END 2022-07-25 13:19 | disposition home or self-care (01) ==
LOC: EC 12:35
DX: S01.01XA Laceration without foreign body of scalp, initial encounter (principal); F17.200 Nicotine dependence, unspecified, uncomplicated; Z91.048 Other nonmedicinal substance allergy status; Z91.012 Allergy to eggs; W01.198A Fall on same level from slipping, tripping and stumbling with subsequent striking against other object, initial encounter; Y92.59 Other trade areas as the place of occurrence of the external cause
CPT/HCPCS: 12001; 99282